=== PATIENT | female | born 1970 | race Caucasian/White ===

== ENCOUNTER 2017-01-25 14:07 | Emergency (ER) | payer OTHER ==
--- NOTE | 2017-01-25 14:59 | ED ---
Back Pain - HPI Summary HPI Summary: 46F back pain today. She says that she woke up with thoracic back pain this morning. She states she went to reach for something and felt a pulling sensation across her upper back. She denies any trauma or previous pain to the area. She has never felt this pain before. She describes it as sharp pain that radiates across her midback and into her ribs. She states the pain is midline. She denies the pain moving into her arms or legs. She denies any numbness or tingling. She denies any loss of bowel or bladder. She denies any saddle anaesthesia. She denies any fever or IV drug use. She is a nonsmoker. She took ibuprofen at 6am and states that she did not help. - History of Current Complaint Chief Complaint: EDBackInjuryPain Stated Complaint: BACK PAIN Time Seen by Provider: 01/25/17 14:50 Hx Last Menstrual Period: 16 yrs ago - surgery Pain Intensity: 3 - Allergies/Home Medications Allergies/Adverse Reactions: Allergies Allergy/AdvReac Type Severity Reaction Status Date / Time Cocaine Allergy See Comment Verified 09/18/16 09:46 PMH/Surg Hx/FS Hx/Imm Hx Endocrine/Hematology History: Denies: Hx Anticoagulant Therapy Respiratory History: Denies: Hx Asthma - Cancer History Hx Chemotherapy: No Hx Radiation Therapy: No - Surgical History Surgery Procedure, Year, and Place: Hysterectomy. Breast Bx. Foot Surgery Infectious Disease History: No Infectious Disease History: Denies: History Other Infectious Disease, Traveled Outside the [place] in Last 30 Days - Family History Known Family History: Positive: Other - breast cancer Negative: Cardiac Disease, Hypertension, Diabetes - Social History Alcohol Use: Occasionally Substance Use Type: Reports: None Hx Tobacco Use: No Smoking Status (MU): Never Smoked Tobacco Review of Systems Negative: Fever Negative: Chest Pain Negative: Shortness Of Breath Positive: Myalgia - back pain All Other Systems Reviewed And Are Negative: Yes Physical Exam Triage Information Reviewed: Yes Vital Signs On Initial Exam: Initial Vitals Temp Pulse Resp BP Pulse Ox 97.6 F 62 15 109/58 100 01/25/17 14:39 01/25/17 14:39 01/25/17 14:39 01/25/17 14:39 01/25/17 14:39 Vital Signs Reviewed: Yes Appearance: Positive: Well-Appearing Skin: Positive: Warm, Dry Head/Face: Positive: Normal Head/Face Inspection Eyes: Positive: Normal, Conjunctiva Clear Respiratory/Lung Sounds: Positive: Clear to Auscultation, Breath Sounds Present Cardiovascular: Positive: Normal, RRR Musculoskeletal: Positive: Limited @ - back due to pain, Other - neg SLR, tender to palpation over T9-T12 with pain to the sides of area on palpation, good pulses, full ROM of extremities - Mason Coma Scale Coma Scale Total: 15 Diagnostics - Vital Signs Vital Signs Temp Pulse Resp BP Pulse Ox 01/25/17 14:39 97.6 F 62 15 109/58 100 - Laboratory Lab Statement: Any lab studies that have been ordered have been reviewed, and results considered in the medical decision making process. - Radiology thoracic spine Xray Interpretation: No Acute Changes - impression: No fracture of the thoracic spine is noted. Radiology Interpretation Completed By: Radiologist Re-Evaluation - Re-Evaluation First Eval Change: Unchanged Comment: still in pain so gave morphine Second Eval Change: Improved Comment: says that no pain but if gives to move in pain Third Eval Change: Improved Comment: discussed can either get admit for pain control or go home. patient decide feels good enough to go home Back Pain Course/Dx - Course Course Of Treatment: 46F presents with back pain today. no injury. states woke up with pain and was trying to reach for something and pain became worst. on exam midline tenderness to t9-t12 and to sides of that area. xray normal. gave norflex, prednisone, and percocet and states that did not touch pain. gave morphine and said that is helped but pain still present if tries to move. discussed that can give another dose of morphine as blood pressure will not tolerate anything higher. patient states pain improved discussed that if does not feel as if can not make it home will have to admit. patient decided that she would be able to function at home. sent home with pain medication and muscle relaxers. told to follow up with primary. patient understands and agrees with plan - Diagnoses Differential Diagnosis/HQI/PQRI: Positive: Herniated Disc, Strain, Sprain Provider Diagnoses: Back pain Discharge - Discharge Plan Condition: Good Disposition: HOME Prescriptions: Lidocaine PATCH 5%* [Lidoderm 5% Patch*] 1 patch TRANSDERM DAILY #5 patch Methocarbamol TAB* [Robaxin TAB*] 750 mg PO TID PRN #6 tab PRN Reason: Pain Methylprednisolone [Medrol Dosepak 4 MG*] 4 mg PO .SEE QUE INSTRUCTION #1 packet oxyCODONE/Acetamin 5/325 MG* [Percocet 5/325 TAB*] 1 tab PO Q6H PRN #12 tab MDD 4 PRN Reason: Pain Patient Education Materials: Back Pain (ED) Referrals: Aldo BAIRD,Kim Cowan [Primary Care Provider] - Additional Instructions: Follow directions on package for Medrol pack Take muscle relaxers three times a day for 3 days, first dose given in ED Apply lidocaine patches to area for up to 12 hours in one 24 hour period Use ibuprofen for pain every 6 hours, use narcotic for break through pain every 6 hours increase fiber with narcotic usage ice/heat area, move as much as possible Follow up with primary within 5 days Return to ED if unable to ambulate or develop any new or worsening symptoms
[2017-01-25] MEDS ORDERED: Dexamethasone IV* 4 MG/ML 5 ML VIAL (20 MG) IVPB ONE (15:00)
[2017-01-25] MEDS ORDERED: Ketorolac INJ* 30 MG/ML 1 ML VIAL IV PUSH ONE (15:01)
[2017-01-25] MEDS ORDERED: Orphenadrine Citrate IV* 30 MG/ML 2 ML VIAL IV ONE (15:01)
[2017-01-25] MEDS ORDERED: oxyCODONE/Acetamin 5/325 MG* TAB PO ONE ×2 (15:02→18:42)
[2017-01-25] MEDS ORDERED: Morphine INJ* 4 MG/ML 1 ML CARPUJECT IV ONE ×2 (16:25→17:27)
--- NOTE | 2017-01-25 17:10 | RAD ---
Indication: Upper back pain. 2 views of the thoracic spine demonstrates vertebral bodies to be normal in height. Disc spaces all well-preserved. impression: No fracture of the thoracic spine is noted.
[2017-01-25 18:32] VITALS: BP 97/48
[2017-01-25] MEDS ORDERED: Methocarbamol TAB* 500 MG PO ONE (18:41)
== END 2017-01-25 19:26 | disposition home or self-care (01) ==
LOC: ED 14:07
DX: M54.9 Dorsalgia, unspecified (principal)
CPT/HCPCS: 72070; 96374; 96375; 99283; A9270-GY; J1100; J1885; J2270; J2360